=== PATIENT | male | born 1950 | race Caucasian/White ===

== ENCOUNTER → 2018-02-11 | Outpatient (CLI) | payer MEDICARE, BC, OTHER ==
[2018-02-11 12:01] LABS: INR 0.98; PROTHROMBIN TIME 13.1 SECONDS (12.1-14.4)
[2018-02-11 12:02] LABS: PARTIAL THROMBOPLASTIN TIME 29.1 SECONDS (25.4-37.6)
[2018-02-11 12:54] LABS: ALBUMIN 3.8 GM/DL (3.2-5.2); ALBUMIN/GLOBULIN RATIO 1.27 (1.00-1.93); ALKALINE PHOSPHATASE 77 U/L (45-117); ALT/SGPT 54 U/L (12-78); AST/SGOT 35 U/L (7-37); BILIRUBIN,DIRECT 0.3 MG/DL (0.0-0.2); BILIRUBIN,TOTAL 1.5 MG/DL (0.2-1.0); TOTAL PROTEIN 6.8 GM/DL (6.4-8.2)
== END ==
LOC: M LAB 11:28
DX: K75.81 Nonalcoholic steatohepatitis (NASH) (principal)
CPT/HCPCS: 80076

== ENCOUNTER → 2018-02-16 | Outpatient (CLI) | payer MEDICARE, BC, OTHER | LOC: M RAD 07:10 | DX: K76.0 Fatty (change of) liver, not elsewhere classified (principal); R74.8 Abnormal levels of other serum enzymes | CPT/HCPCS: 76705 ==

== ENCOUNTER → 2018-03-11 | Outpatient (CLI) | payer MEDICARE, BC, OTHER ==
[2018-03-11 15:26] LABS: BLOOD UREA NITROGEN 21 MG/DL (7-18); CREATININE FOR GFR 1.25 MG/DL (0.70-1.30); GLOMERULAR FILTRATION RATE > 60.0 (>49)
== END ==
LOC: M LAB 13:51
PROVIDERS: ATTEND Internal Medicine Gastroenterology
DX: K75.81 Nonalcoholic steatohepatitis (NASH) (principal)

== ENCOUNTER → 2018-03-18 | Outpatient (CLI) | payer MEDICARE, BC, OTHER ==
[~2018-03-18] MED LIST: GASTROGRAFIN SOLUTION 30ML (Q9963) As Ordered; ISOVUE-370 76% 100ML VIAL (Q9967) As Ordered
== END ==
LOC: M RAD 07:37
DX: R74.8 Abnormal levels of other serum enzymes (principal); K75.81 Nonalcoholic steatohepatitis (NASH)
CPT/HCPCS: Q9963

== ENCOUNTER → 2018-12-14 | Outpatient (REF) | payer MEDICARE, BC, OTHER | LOC: M SFHCPLAZ 19:53 | PROVIDERS: ATTEND Dermatology | DX: L82.0 Inflamed seborrheic keratosis (principal) ==

== ENCOUNTER → 2019-06-16 | Outpatient (REF) | payer MEDICARE, OTHER ==
[~2019-06-16] MED LIST changes: +ATOR1TAB19 PO; +CLAR2.5T PO; +D3 22000 PO; -GASTROGRAFIN SOLUTION 30ML (Q9963) As Ordered; -ISOVUE-370 76% 100ML VIAL (Q9967) As Ordered; +LEVO50TA5 PO; +MULTCAP PO; +TAMS1CAP17 PO
== END ==
LOC: M LAB REF 11:39
PROVIDERS: ATTEND Dermatology
DX: L82.1 Other seborrheic keratosis (principal)

== ENCOUNTER 2019-07-09 08:30 | Day surgery (SDC) | payer MEDICARE, BC, OTHER ==
[~2019-07-09] VITALS: Ht 177.8 cm; Wt 86.6 kg
[~2019-07-09 08:30] MED LIST changes: +NS 1,000 ML IV ONE
[2019-07-09] MEDS ORDERED: propofoL 200 MG/20 ML VIAL As Ordered ONE (09:24)
[2019-07-09] MEDS ORDERED: LIDOCAINE 2% INJ 100 MG/5 ML SDV (FOR ANES.) As Ordered ONE (09:24)
--- NOTE | 2019-07-09 10:44 | ROOR ---
Patient Name: Ricardo Jon Procedure Date: 07/09/2019 10:13 AM Date of : 1950 Age: 68 Room: [facility] Gender: Male Note Status: Finalized Procedure: Colonoscopy Indications: High risk colon cancer surveillance: Personal history of colonic polyps, Last colonoscopy: February 2016 Providers: Royce TRAORE MD Referring MD: AYDEN HERNANDEZ Requesting Provider: Medicines: Monitored Anesthesia Care Complications: No immediate complications. Procedure: Pre-Anesthesia Assessment: - The heart rate, respiratory rate, oxygen saturations, blood pressure, adequacy of pulmonary ventilation, and response to care were monitored throughout the procedure. The Colonoscope was introduced through the anus and advanced to the terminal ileum, with identification of the appendiceal orifice and IC valve. The colonoscopy was performed without difficulty. The patient tolerated the procedure well. The quality of the bowel preparation was good. Findings: The perianal and digital rectal examinations were normal. Four sessile polyps were found in the sigmoid colon, splenic flexure and ascending colon. The polyps were 4 to 6 mm in size. These polyps were removed with a cold snare. Resection and retrieval were complete. Mild sigmoid diverticulosis and small internal hemorrhoids. The exam was otherwise without abnormality on direct and retroflexion views. Impression: - Four 4 to 6 mm polyps in the sigmoid colon, at the splenic flexure and in the ascending colon, removed with a cold snare. Resected and retrieved. - Mild sigmoid diverticulosis and small internal hemorrhoids. - The examination was otherwise normal on direct and retroflexion views. Recommendation: - Repeat colonoscopy in 3 years for surveillance. Royce Traore MD Royce TRAORE MD 07/09/2019 10:44:05 AM Electronically signed by Royce TRAORE MD Number of Addenda: 0 Note Initiated On: 07/09/2019 10:13 AM Estimated Blood Loss: Estimated blood loss: none.
[2019-07-09 11:05] VITALS: BP 103/64
== END 2019-07-09 11:14 | disposition home or self-care (01) ==
LOC: M OPP 08:30
PROVIDERS: ATTEND Internal Medicine Gastroenterology
DX: Z86.010 Personal history of colon polyps (principal); Z80.0 Family history of malignant neoplasm of digestive organs; K63.5 Polyp of colon; K57.30 Diverticulosis of large intestine without perforation or abscess without bleeding; K64.8 Other hemorrhoids; E78.00 Pure hypercholesterolemia, unspecified; E03.9 Hypothyroidism, unspecified; Z88.6 Allergy status to analgesic agent; Z79.899 Other long term (current) drug therapy; Z80.3 Family history of malignant neoplasm of breast; Z80.41 Family history of malignant neoplasm of ovary

== ENCOUNTER → 2020-11-01 | Outpatient (CLI) | payer MEDICARE, BC, OTHER ==
[~2020-11-01] MED LIST changes: -D3 22000 PO; +E-Z-GAS II EFFERVESCENT PACKET (SODIUM BICARB./CITRIC ACID/SIMETHICONE) As Ordered ONE; +E-Z-HD 98% w/w 340GM SUSP BTL As Ordered ONE; +E-Z-PAQUE 96% w/w SUSP 176GM BTL As Ordered ONE; -NS 1,000 ML IV ONE; +VITA200030 PO
--- NOTE | 2020-11-01 16:29 | REP ---
INDICATION: NAUSEA WITH VOMITING. COMPARISON: None. TECHNIQUE: The procedure was performed under the direct supervision of Dr. Pradhan. The images were reviewed with Dr. Pradhan. Liquid barium and gas producing crystals were given in the erect position as well as liquid barium in the prone oblique position in order to perform a double contrast upper GI examination. Additionally liquid barium was given at the end of the examination in order to perform a small bowel follow through. A combination od fluoroscopy, spot films and last image hold technology was utilized, 3.5 minutes of fluoro time was utilized for this procedure. FINDINGS: The professor of biology film shows no organomegaly or pathological masses. The intestinal gas pattern is non-specific. The oral and pharyngeal stages of deglutition are unremarkable. Esophageal transport is prompt and efficient and there is no esophagitis, stricture, mucosal ring or hiatal hernia. Gastroesophageal reflux is not demonstrated on this examination. Within the stomach there are multiple polyps identified. The largest of which measures 8 mm. The duodenal bustillos are normally outlined . The mucosal folds are smooth and regular. There is no duodenitis pancreatitis peptic ulcer disease or neoplasm. The visualized portion of the proximal small bowel appears normal in course and caliber. 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 The barium column was followed through the small bowel to the level of the terminal ileum. Small bowel transit time is approximately 1 hour. During fluoroscopy gentle palpation shows all loops are freely movable and pliable. There are no fixed or angulated loops. The small bowel mucosal pattern is normal in course and caliber. There is no transition to suggest a partial small-bowel obstruction. Spot filming of the terminal ileum shows it to be unremarkable. IMPRESSION: 1. There are multiple polyps within the stomach, the largest of which measures 8 mm. 2. 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 . <Electronically signed by Vinayak Bailon > 11/01/20 1600 <Electronically signed by Wil Pradhan > 11/01/20 1625
== END ==
LOC: M RAD 08:09
PROVIDERS: ATTEND Physician Assistant
DX: K31.7 Polyp of stomach and duodenum (principal); K57.90 Diverticulosis of intestine, part unspecified, without perforation or abscess without bleeding; R11.2 Nausea with vomiting, unspecified

== ENCOUNTER → 2020-12-12 | Outpatient (CLI) | payer MEDICARE, BC, OTHER ==
[~2020-12-12] MED LIST changes: -E-Z-GAS II EFFERVESCENT PACKET (SODIUM BICARB./CITRIC ACID/SIMETHICONE) As Ordered ONE; -E-Z-HD 98% w/w 340GM SUSP BTL As Ordered ONE; -E-Z-PAQUE 96% w/w SUSP 176GM BTL As Ordered ONE
[2020-12-12 13:10] LABS: BLOOD UREA NITROGEN 21 MG/DL (7-18); GLOMERULAR FILTRATION RATE > 60.0 (>42)
== END ==
LOC: M PLALAB 10:37
PROVIDERS: ATTEND Physician Assistant Medical
DX: R93.3 Abnormal findings on diagnostic imaging of other parts of digestive tract (principal); R68.81 Early satiety

== ENCOUNTER → 2020-12-14 | Outpatient (CLI) | payer MEDICARE, BC, OTHER ==
[~2020-12-14] MED LIST changes: +GASTROGRAFIN SOLUTION 30ML (Q9963) As Ordered ONE; +ISOVUE-370 76% 100ML VIAL As Ordered ONE
--- NOTE | 2020-12-14 15:40 | REP ---
INDICATION: ABNORMAL FINDINGS ON DX IMAGING OF PRT DIGESTIVE T. COMPARISON: CT abdomen only of 03/18/2018 the only prior TECHNIQUE: Standard helical technique after the intravenous administration of 100 cc Isovue 370 and oral bowel preparatory contrast administration. FINDINGS: There is no significant change in appearance of the lung bases. The pre contrast enhanced portion examination shows a patent splenic densities to be within normal limits. The patient is status post cholecystectomy. There are no nephroliths. Contrast enhanced portion of the examination shows the liver, spleen, pancreas, adrenal glands, and kidneys to be within normal limits. The abdominal aorta and para-aortic regions are within normal limits. There is no significant change in appearance of the bowel loops or the mesenteries. There is no evidence of a mass or adenopathy. There is no free fluid or free air. There are a few scattered descending colon diverticula. There is a duodenal diverticulum status quo. Bone window technique throughout the examination shows no evidence of an acute abnormality. IMPRESSION: 1. CT cannot effectively evaluate the stomach. That is a well-known and published CT-PET fall. EGD would be necessary. 2. Negative CT scan does not obviate further evaluation of the colon with colonoscopy. 3. There is no evidence of acute disease. <Electronically signed by Moises Guevara > 12/14/20 1828
== END ==
LOC: M RAD 13:43
PROVIDERS: ATTEND Physician Assistant Medical
DX: R93.3 Abnormal findings on diagnostic imaging of other parts of digestive tract (principal)
CPT/HCPCS: 74178; Q9963; Q9967

== ENCOUNTER → 2021-01-11 | Outpatient (CLI) | payer MEDICARE, BC, OTHER ==
[~2021-01-11] MED LIST changes: +FAMO40TA3 PO; -GASTROGRAFIN SOLUTION 30ML (Q9963) As Ordered ONE; -ISOVUE-370 76% 100ML VIAL As Ordered ONE; +ROSU10TA6 PO; +VITMTA PO
== END ==
LOC: M LABSMTC 10:56
PROVIDERS: ATTEND Anesthesiology
DX: Z11.52 Encounter for screening for COVID-19 (principal); Z20.822 Contact with and (suspected) exposure to COVID-19

== ENCOUNTER → 2021-01-16 | Day surgery (SDC) | payer MEDICARE, BC, OTHER ==
[~2021-01-16] VITALS: Ht 177.8 cm; Wt 88.0 kg
[~2021-01-16] MED LIST changes: +LIDOCAINE 2% 100MG/5ML SDV (FOR ANES.) As Ordered ONE; +NS 1,000 ML IV ONE; +fentaNYL 100 MCG/2 ML INJECTION (J3010) As Ordered ONE; +propofoL 200 MG/20 ML VIAL As Ordered ONE
--- NOTE | 2021-01-16 15:05 | ROOR ---
Patient Name: Ricardo Jon Procedure Date: 01/16/2021 2:40 PM Date of : 1950 Age: 70 Room: [facility] Gender: Male Note Status: Finalized Procedure: Upper GI endoscopy Indications: Heartburn, Abnormal UGI series, Nausea Providers: Royce Landis MD Referring MD: NIKOLAI TERRY MD Requesting Provider: Medicines: Monitored Anesthesia Care Complications: No immediate complications. Procedure: Pre-Anesthesia Assessment: - The heart rate, respiratory rate, oxygen saturations, blood pressure, adequacy of pulmonary ventilation, and response to care were monitored throughout the procedure. The Endoscope was introduced through the mouth, and advanced to the second part of duodenum. The upper GI endoscopy was accomplished without difficulty. The patient tolerated the procedure well. Findings: The examined esophagus was normal. Multiple 5 to 10 mm semi-sessile fundic gland polyps with no bleeding and stigmata of recent bleeding were found in the cardia, in the gastric fundus and in the gastric body. The polyp was removed with a cold snare. Resection and retrieval were complete. A diverticulum was found in the second portion of the duodenum. The examined duodenum was normal. Biopsies were taken with a cold forceps in the gastric antrum for Helicobacter pylori testing. Impression: - Normal esophagus. - Multiple fundic gland polyps. Resected and retrieved. - Duodenal diverticulum. - Normal examined duodenum. - Biopsies were taken with a cold forceps for Helicobacter pylori testing. Recommendation: - Continue present medications. - Observe patient's clinical course. Procedure Code(s): --- Professional --- 32763, Esophagogastroduodenoscopy, flexible, transoral; with removal of tumor(s), polyp(s), or other lesion(s) by snare technique [id number], 59, Esophagogastroduodenoscopy, flexible, transoral; with biopsy, single or multiple Diagnosis Code(s): --- Professional --- K31.7, Polyp of stomach and duodenum R12, Heartburn R11.0, Nausea R93.3, Abnormal findings on diagnostic imaging of other parts of digestive tract K57.10, Diverticulosis of small intestine without perforation or abscess without bleeding CPT copyright 2019 [employer]. All rights reserved. The codes documented in this report are preliminary and upon customer experience professional review may be revised to meet current compliance requirements. Royce Landis MD Royce Landis MD 01/16/2021 3:04:29 PM Electronically signed by Royce Landis MD Number of Addenda: 0 Note Initiated On: 01/16/2021 2:40 PM Estimated Blood Loss: Estimated blood loss: none.
[2021-01-16 15:38] VITALS: BP 125/72
== END | disposition home or self-care (01) ==
LOC: M OPP 13:13
PROVIDERS: ATTEND Internal Medicine Gastroenterology
DX: K31.7 Polyp of stomach and duodenum (principal); R12 Heartburn; R11.0 Nausea; R93.3 Abnormal findings on diagnostic imaging of other parts of digestive tract; Z79.899 Other long term (current) drug therapy; Z80.0 Family history of malignant neoplasm of digestive organs
CPT/HCPCS: 43239; 43251; 88305; J3010

== ENCOUNTER → 2022-09-02 | Day surgery (SDC) | payer MEDICARE, BC, OTHER ==
[~2022-09-02] VITALS: Ht 177.8 cm; Wt 86.2 kg
[~2022-09-02] MED LIST changes: +CIAL5TAB PO; -CLAR2.5T PO; +DESL1TBM PO; -fentaNYL 100 MCG/2 ML INJECTION (J3010) As Ordered ONE
[2022-09-02 15:10] VITALS: BP 108/70
== END | disposition home or self-care (01) ==
LOC: M OPP 11:51
PROVIDERS: ATTEND Internal Medicine Gastroenterology
DX: D12.2 Benign neoplasm of ascending colon (principal); K64.8 Other hemorrhoids; K57.30 Diverticulosis of large intestine without perforation or abscess without bleeding; K52.89 Other specified noninfective gastroenteritis and colitis; K31.7 Polyp of stomach and duodenum; K31.89 Other diseases of stomach and duodenum; K29.00 Acute gastritis without bleeding; Z79.02 Long term (current) use of antithrombotics/antiplatelets; Z79.899 Other long term (current) drug therapy; Z88.6 Allergy status to analgesic agent

== ENCOUNTER → 2022-09-06 | Outpatient (CLI) | payer MEDICARE, BC, OTHER ==
[~2022-09-06] MED LIST changes: -LIDOCAINE 2% 100MG/5ML SDV (FOR ANES.) As Ordered ONE; -NS 1,000 ML IV ONE; -propofoL 200 MG/20 ML VIAL As Ordered ONE
[2022-09-06 10:22] LABS: CREATININE FOR GFR 1.26 MG/DL (0.70-1.30); GLOMERULAR FILTRATION RATE 59.9 (>42)
== END ==
LOC: M LAB 09:15
PROVIDERS: ATTEND Physician Assistant Medical
DX: R63.4 Abnormal weight loss (principal); R11.2 Nausea with vomiting, unspecified

== ENCOUNTER → 2022-09-13 | Outpatient (CLI) | payer MEDICARE, BC, OTHER ==
[~2022-09-13] MED LIST changes: +GASTROGRAFIN SOLUTION 30ML As Ordered ONE; +GLUCAGON INJ 1MG VIAL As Ordered ONE; +ISOVUE-370 76% 100ML VIAL As Ordered ONE; +NEULUMEX 0.1% SUSPENSION 450ML BOTTLE (FORMERLY VOLUMEN) As Ordered ONE
== END ==
LOC: M RAD 12:08
PROVIDERS: ATTEND Physician Assistant Medical
DX: R63.4 Abnormal weight loss (principal); R11.2 Nausea with vomiting, unspecified; R19.7 Diarrhea, unspecified
CPT/HCPCS: 74177; J1610; Q9967

== ENCOUNTER → 2022-10-21 | Outpatient (CLI) | payer MEDICARE, BC, OTHER ==
[~2022-10-21] MED LIST changes: -GASTROGRAFIN SOLUTION 30ML As Ordered ONE; -GLUCAGON INJ 1MG VIAL As Ordered ONE; -ISOVUE-370 76% 100ML VIAL As Ordered ONE; -NEULUMEX 0.1% SUSPENSION 450ML BOTTLE (FORMERLY VOLUMEN) As Ordered ONE
== END ==
LOC: M RAD 08:25
PROVIDERS: ATTEND Physician Assistant Medical
DX: R12 Heartburn (principal); R68.81 Early satiety; R63.4 Abnormal weight loss
CPT/HCPCS: 78264; A9541

== ENCOUNTER 2023-01-29 08:09 | Emergency (ER) | payer MEDICARE, BC, OTHER ==
[~2023-01-29] VITALS: Ht 177.8 cm; Wt 86.6 kg
[2023-01-29 09:40] LABS: BASO % 0.3 % (0.0-1.0); EOS # 0.1 10^3/uL (0.0-0.5); EOS % 0.8 % (0.0-3.0); HEMOGLOBIN 15.8 g/dl (13.5-17.5); LYMPH # 0.8 10^3/uL (1.5-5.0); LYMPH % 5.2 % (24.0-44.0); MEAN CORPUSCULAR HEMOGLOBIN 32.8 pg (27.0-33.0); MEAN CORPUSCULAR HGB CONC 35.1 g/dl (32.0-36.5); MEAN CORPUSCULAR VOLUME 93.4 fl (80.0-96.0); MONO # 1.5 10^3/uL (0.0-0.8); MONO % 9.6 % (2.0-8.0); NEUTROPHILS # 12.8 10^3/uL (1.5-8.5); NEUTROPHILS % 83.8 % (36.0-66.0); PLATELET COUNT, AUTOMATED 181 10^3/uL (150-450); RED BLOOD COUNT 4.82 10^6/uL (4.30-6.10); WHITE BLOOD COUNT 15.3 10^3/uL (4.0-10.0)
[2023-01-29] MEDS ORDERED: NS 1,000 ML IV ONE (09:45)
[2023-01-29] MEDS ORDERED: METOCLOPRAMIDE INJ 10MG/2ML VIAL IV ONE (09:45)
[2023-01-29 09:58] LABS: LIPASE 48 U/L (12-53)
[2023-01-29 10:00] LABS: ALBUMIN 3.8 G/DL (3.2-5.2); ALKALINE PHOSPHATASE 73 U/L (46-116); ALT/SGPT 36 U/L (7.0-40); AST/SGOT 31 U/L (<34); BILIRUBIN,TOTAL 1.1 MG/DL (0.3-1.2); BLOOD UREA NITROGEN 17 MG/DL (9-23); CALCIUM LEVEL 8.9 MG/DL (8.3-10.6); CARBON DIOXIDE LEVEL 25 MMOL/L (20-31); CHLORIDE LEVEL 113 MMOL/L (98-107); CREATININE FOR GFR 1.19 MG/DL (0.70-1.30); GLOMERULAR FILTRATION RATE > 60.0 (>42); GLUCOSE, FASTING 106 MG/DL (74-106); POTASSIUM SERUM 4.7 MMOL/L (3.5-5.1); SODIUM LEVEL 143 MMOL/L (136-145); TOTAL PROTEIN 6.5 G/DL (5.7-8.2)
[2023-01-29] MEDS ORDERED: ISOVUE-370 76% 100ML VIAL As Ordered ONE (10:44)
[2023-01-29] MEDS ORDERED: REGL10TA6 PO (11:43)
[2023-01-29 12:34] VITALS: BP 128/74; TEMP 97.6; O2SAT 99
== END 2023-01-29 12:35 | disposition home or self-care (01) ==
LOC: M ED 09:31
DX: R11.2 Nausea with vomiting, unspecified (principal); R19.7 Diarrhea, unspecified; K57.10 Diverticulosis of small intestine without perforation or abscess without bleeding; Z88.8 Allergy status to other drugs, medicaments and biological substances; Z79.899 Other long term (current) drug therapy
CPT/HCPCS: 74177; 80053; 83690; 85025; 96361; 96374; 99284; J2765; Q9967

== ENCOUNTER → 2023-02-04 | Outpatient (REF) | payer MEDICARE, BC, OTHER ==
[~2023-02-04] MED LIST changes: +REGL10TA6 PO
== END ==
LOC: M LAB REF 12:34
PROVIDERS: ATTEND Physician Assistant
DX: R19.7 Diarrhea, unspecified (principal)

== ENCOUNTER → 2023-07-29 | Outpatient (REF) | payer MEDICARE, OTHER | LOC: M SFHCADAM 08:19 | PROVIDERS: ATTEND Urology | DX: R97.20 Elevated prostate specific antigen [PSA] (principal) ==

== ENCOUNTER → 2023-09-05 | Outpatient (REF) | payer MEDICARE, OTHER ==
[~2023-09-05] MED LIST changes: -ROSU10TA6 PO; +ROSU10TA61 PO
== END ==
LOC: M SMT 12:17
PROVIDERS: ATTEND Urology
DX: C61 Malignant neoplasm of prostate (principal); R97.20 Elevated prostate specific antigen [PSA]; Z79.899 Other long term (current) drug therapy; Z79.890 Hormone replacement therapy; Z88.8 Allergy status to other drugs, medicaments and biological substances

== ENCOUNTER → 2023-10-02 | Outpatient (REF) | payer MEDICARE, BC ==
[2023-10-02 18:58] LABS: CALCIUM LEVEL 9.5 MG/DL (8.3-10.6); CREATININE FOR GFR 1.32 MG/DL (0.70-1.30); GLOMERULAR FILTRATION RATE 56.6 (>42); POTASSIUM SERUM 4.2 MMOL/L (3.5-5.1)
== END ==
LOC: M SFHCADAM 13:41
PROVIDERS: ATTEND Urology
DX: C61 Malignant neoplasm of prostate (principal)

== ENCOUNTER → 2023-10-07 | Outpatient (CLI) | payer MEDICARE, BC ==
[~2023-10-07] MED LIST changes: +ISOVUE-370 76% 100ML VIAL As Ordered ONE
== END ==
LOC: M RAD 09:27
PROVIDERS: ATTEND Urology
DX: C61 Malignant neoplasm of prostate (principal); K76.0 Fatty (change of) liver, not elsewhere classified; Z90.49 Acquired absence of other specified parts of digestive tract
CPT/HCPCS: 74177; 78306; A9503; Q9967

== ENCOUNTER → 2023-10-29 | Outpatient (CLI) | payer MEDICARE, BC ==
[~2023-10-29] MED LIST changes: -ISOVUE-370 76% 100ML VIAL As Ordered ONE
[2023-10-29 10:01] LABS: HEMATOCRIT 48.3 % (42.0-52.0); HEMOGLOBIN 16.4 g/dl (13.5-17.5); MEAN CORPUSCULAR HEMOGLOBIN 31.7 pg (27.0-33.0); MEAN CORPUSCULAR VOLUME 93.2 fl (80.0-96.0); PLATELET COUNT, AUTOMATED 180 10^3/uL (150-450); RED BLOOD COUNT 5.18 10^6/uL (4.30-6.10); WHITE BLOOD COUNT 7.4 10^3/uL (4.0-10.0)
[2023-10-29 10:17] LABS: INR 1.02; PARTIAL THROMBOPLASTIN TIME 28.2 SECONDS (24.8-34.2); PROTHROMBIN TIME 13.1 SECONDS (12.5-14.5)
[2023-10-29 10:31] LABS: ALBUMIN 4.1 G/DL (3.2-5.2); BILIRUBIN,TOTAL 2.2 MG/DL (0.3-1.2); CALCIUM LEVEL 9.4 MG/DL (8.3-10.6); CREATININE FOR GFR 1.4 MG/DL (0.70-1.30); GLOMERULAR FILTRATION RATE 52.9 (>42); POTASSIUM SERUM 4.7 MMOL/L (3.5-5.1); TOTAL PROTEIN 6.7 G/DL (5.7-8.2)
== END ==
LOC: M RAD 09:14
PROVIDERS: ATTEND Urology
DX: C61 Malignant neoplasm of prostate (principal)

== ENCOUNTER → 2023-11-10 | Outpatient (CLI) | payer MEDICARE, BC | LOC: M LAB 10:44 | PROVIDERS: ATTEND Urology | DX: C61 Malignant neoplasm of prostate (principal) ==

== ENCOUNTER → 2023-12-18 | Outpatient (REF) | payer MEDICARE, BC ==
[~2023-12-18] MED LIST changes: +CIPR-249 PO; +CLAR10CA3 PO; +CLAR1TAB13 PO; +COLA100C5 PO; +LEVO100T5 PO; +LORA-243 PO; +MULTTAB61 PO; +PERCOCET PO; +VITA100093 PO
== END ==
LOC: M LABDRWAD 17:05 → M SMT 17:05
PROVIDERS: ATTEND Urology
DX: C61 Malignant neoplasm of prostate (principal)

== ENCOUNTER → 2024-03-23 | Outpatient (CLI) | payer MEDICARE, BC | LOC: M LAB 09:13 | PROVIDERS: ATTEND Urology | DX: C61 Malignant neoplasm of prostate (principal) ==

== ENCOUNTER → 2024-06-30 | Outpatient (REF) | payer MEDICARE, BC | LOC: M LABWUC 12:35 → M SMT 12:35 | PROVIDERS: ATTEND Urology | DX: C61 Malignant neoplasm of prostate (principal) ==

== ENCOUNTER 2024-07-29 08:50 | Day surgery (SDC) | payer MEDICARE, BC ==
[~2024-07-29] VITALS: Ht 177.8 cm; Wt 84.2 kg
[2024-07-29 10:52] VITALS: TEMP 96.3
[2024-07-29 11:10] VITALS: BP 128/76; O2SAT 94
== END 2024-07-29 11:14 | disposition home or self-care (01) ==
LOC: M OPP 08:50
PROVIDERS: ATTEND Internal Medicine Gastroenterology
DX: D12.3 Benign neoplasm of transverse colon (principal); K57.30 Diverticulosis of large intestine without perforation or abscess without bleeding; K64.8 Other hemorrhoids; Z86.0101 Personal history of adenomatous and serrated colon polyps; Z98.890 Other specified postprocedural states; Z88.6 Allergy status to analgesic agent; Z79.899 Other long term (current) drug therapy

== ENCOUNTER → 2024-11-09 | Outpatient (REF) | payer MEDICARE, BC ==
[2024-11-09 15:10] LABS: ALT/SGPT 30.0 U/L (7.0-40); AST/SGOT 32.0 U/L (<34); CALCIUM LEVEL 9.2 MG/DL (8.3-10.6); CARBON DIOXIDE LEVEL 24.0 MMOL/L (20-31); CHLORIDE LEVEL 106.0 MMOL/L (98-107); CHOLESTEROL LEVEL 128.0 MG/DL (<200); CHOLESTEROL RISK RATIO 3.55 (<5); CREATININE FOR GFR 1.25 MG/DL (0.70-1.30); GLOMERULAR FILTRATION RATE 60.4 (>42); LDL CHOLESTEROL 67.2 MG/DL (<100); NON-HDL-C 92.0 MG/DL; PLATELET COUNT, AUTOMATED 199 10^3/uL (150-450); POTASSIUM SERUM 4.3 MMOL/L (3.5-5.1); SODIUM LEVEL 143.0 MMOL/L (136-145); TRIGLYCERIDES LEVEL 124.0 MG/DL (<150)
== END ==
LOC: M LABDRWAD 13:28
PROVIDERS: ATTEND Physician Assistant
DX: E78.5 Hyperlipidemia, unspecified (principal); E03.9 Hypothyroidism, unspecified

== ENCOUNTER → 2025-01-05 | Outpatient (REF) | payer MEDICARE, BC | LOC: M SFHCADAM 14:16 | PROVIDERS: ATTEND Urology | DX: C61 Malignant neoplasm of prostate (principal) ==

== ENCOUNTER → 2025-03-29 | Outpatient (REF) | payer MEDICARE, BC ==
[~2025-03-29] MED LIST changes: -ROSU10TA61 PO; +ROSU10TA90 PO
== END ==
LOC: M SFHCADAM 14:23
PROVIDERS: ATTEND Urology
DX: C61 Malignant neoplasm of prostate (principal)